=== PATIENT | male | born 1980 | race African-American/Black ===

== ENCOUNTER 2022-02-25 06:45 | Emergency (ER) | payer OTHER ==
[2022-02-25 06:57] VITALS: BP 172/119
--- NOTE | 2022-02-25 07:33 | ED Physician Documentation ---
PD HPI UPPER EXT INJURY - Stated complaint Stated Complaint: RING STUCK ON R RING FINGER - Chief complaint Chief Complaint: Ext Problem - History obtained from History obtained from: Patient - Additonal information Additional information: The patient comes to the emergency department with chief complaint of [place] ring stuck on right ring finger. The patient states that its just been stuck since this morning after he put it on. He does not really know why his finger is more swollen today. He denies any trauma or evidence of infection. Has not been painful and he did not sustain a bite or any other cause of swelling that he can think of. He states he used Vaseline and tried to twist the ring off his finger but could not move it and now the swelling is gotten worse. The patient denies any other complaints at this time. Review of Systems Ten Systems: 10 systems reviewed and negative Constitutional: reports: Reviewed and negative Eyes: reports: Reviewed and negative Ears: reports: Reviewed and negative Nose: reports: Reviewed and negative Throat: reports: Reviewed and negative Cardiac: reports: Reviewed and negative Respiratory: reports: Reviewed and negative GI: reports: Reviewed and negative : reports: Reviewed and negative Skin: reports: Reviewed and negative Musculoskeletal: reports: Extremity swelling Neurologic: reports: Reviewed and negative Psychiatric: reports: Reviewed and negative Endocrine: reports: Reviewed and negative Immunocompromised: reports: Reviewed and negative PD PAST MEDICAL HISTORY - Present Medications Home Medications: Ambulatory Orders Medication Instructions Recorded Confirmed No Known Home Medications 02/25/22 02/25/22 - Allergies Allergies/Adverse Reactions: Allergies Allergy/AdvReac Type Severity Reaction Status Date / Time No Known Drug Allergies Allergy Verified 02/25/22 06:57 PD ED PE NORMAL - Vitals Vital signs reviewed: Yes - General General: Alert and oriented X 3, No acute distress, Well developed/nourished - HEENT HEENT: Atraumatic, PERRL, EOMI, Moist mucous membranes - Neck Neck: Supple, no meningeal sign - Cardiac Cardiac: Strong equal pulses - Respiratory Respiratory: No respiratory distress - Derm Derm: Normal color, Warm and dry - Extremities Extremities: No deformity, Other (Moderate edema of the right ring finger over the proximal phalanx extending to the PIP joint. No erythema or induration. No deformity. A large, decorative ring is present at the base of the finger.) - Neuro Neuro: Alert and oriented X 3 - Psych Psych: Normal mood, Normal affect Results - Vitals Vitals: Oxygen O2 Source Room air PD MEDICAL DECISION MAKING - ED course Complexity details: considered differential, d/w patient ED course: The ring was removed. Pt had full ROM of the finger and no skin trauma. Edema dissipated quickly. Pt was stable for d/c home. Departure - Departure Disposition: Home, Self Care Clinical Impression: Tight ring on finger Condition: Stable Comments: The ring has been removed today. Please be sure to get a bigger ring size if the [place] replaces this ring so this does not happen again. You should not put anything on your finger, as far as any rings, until the swelling has completely resolved and any abrasions have healed up. Discharge Date/Time: 02/25/22 08:38
== END 2022-02-25 08:38 | disposition home or self-care (01) ==
LOC: ED 06:45
DX: S60.444A External constriction of right ring finger, initial encounter (principal); W49.04XA Ring or other jewelry causing external constriction, initial encounter
CPT/HCPCS: 99281